=== PATIENT | male | born 1935 | race Caucasian/White ===

== ENCOUNTER 2019-06-22 09:38 | Emergency (ER) | payer OTHER, MEDICAID ==
[~2019-06-22] VITALS: Ht 167.6 cm; Wt 81.6 kg
[~2019-06-22 09:38] MED LIST: ASPIR-LOW81 M1 PO; COZ25 PO; GLU500 PO; LOP50 PO; NOR5 PO; PROINH INH; [UNRECOGNIZED DRUG - REMARK]
[2019-06-22 10:04] VITALS: BP 147/75; Ht 167.6 cm; Wt 81.6 kg
== END 2019-06-22 12:45 | disposition home or self-care (01) ==
LOC: ED 09:38
DX: M54.42 Lumbago with sciatica, left side (principal); J45.909 Unspecified asthma, uncomplicated; I10 Essential (primary) hypertension; E11.9 Type 2 diabetes mellitus without complications; Z86.73 Personal history of transient ischemic attack (TIA), and cerebral infarction without residual deficits
CPT/HCPCS: J1885